=== PATIENT | male | born 1970 | race Two or more races ===

== ENCOUNTER 2019-08-23 07:41 | Emergency (ER) | payer OTHER ==
[2019-08-23 08:16] VITALS: BMI 26.3
[2019-08-23] MEDS ORDERED: KETOROLAC TROMETHAMINE 30 MG/1 ML VIAL IM ONE (08:39)
[2019-08-23] MEDS ORDERED: diazePAM 2 MG TABLET PO ONE ×2 (08:39→13:41)
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
[2019-08-23] MEDS ORDERED: KETOROLAC TROMETHAMINE 30 MG/1 ML VIAL ONE (08:42)
[2019-08-23] MEDS ORDERED: diazePAM 2 MG TABLET ONE (08:42)
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
[2019-08-23] MEDS ORDERED: morphine CARPU-JECT 4 MG/1 ML DISP.SYRIN IVPUSH ONE (09:06)
[2019-08-23] MEDS ORDERED: MORPHINE SULFATE 2 MG/ML VIAL ONE (09:12)
[2019-08-23 09:26] LABS: BASO % 0.3 % (0-2.0); EOS % 0.7 % (0-4.5); HEMATOCRIT 42.4 % (35.4-49); HEMOGLOBIN 14.3 GM/dL (11.7-16.9); LYMPH % 23.1 % (8-40); MCH 29.7 pg (25.7-33.7); MCHC 33.7 g/dl (32.0-35.9); MEAN PLT VOLUME 7.8 fl (7.5-11.1); NEUT % 69.9 % (42.8-82.8); PLATELET COUNT 297 K/MM3 (134-434); RBC 4.82 M/mm3 (4.00-5.60); RDW 14.5 % (11.9-15.9); WHITE BLOOD COUNT 7.1 K/mm3 (4.0-10.0)
[2019-08-23 10:05] LABS: ALBUMIN 3.8 g/dl (3.4-5.0); BILIRUBIN,TOTAL 0.4 mg/dL (0.2-1); BLOOD UREA NITROGEN 16.1 mg/dL (7-18); CALCIUM 9.4 mg/dL (8.5-10.1); POTASSIUM 4.3 mmol/L (3.5-5.1); TOT PROT 7.2 g/dl (6.4-8.2)
[2019-08-23] MEDS ORDERED: METHOCARBAMOL 500 MG TABLET PO ONE (13:38)
[2019-08-23] MEDS ORDERED: ACETAMINOPHEN 1000 MG/100 ML VIAL (NON FORMULARY) IVPB ONE (13:41)
[2019-08-23] MEDS ORDERED: KETOROLAC TROMETHAMINE 30 MG/1 ML VIAL IVPUSH ONE (13:41)
[2019-08-23] MEDS ORDERED: diazePAM 5 MG TABLET ONE (14:02)
[2019-08-23] MEDS ORDERED: KETOROLAC TROMETHAMINE 15 MG/ML VIAL ONE (14:03)
[2019-08-23] MEDS ORDERED: ACETAMINOPHEN INJECTION 100 ML IVPB ONE (14:03)
[2019-08-23 15:57] VITALS: BP 121/71; PULSE 58; TEMP 98.2
== END 2019-08-23 15:58 | disposition home or self-care (01) ==
LOC: JER 07:41
PROC: 3E033NZ Introduction of Analgesics, Hypnotics, Sedatives into Peripheral Vein, Percutaneous Approach (ICD-10-PCS; principal; 2019-08-23)
PROC: 3E033NZ Introduction of Analgesics, Hypnotics, Sedatives into Peripheral Vein, Percutaneous Approach (ICD-10-PCS; 2019-08-23)
PROC: 3E0333Z Introduction of Anti-inflammatory into Peripheral Vein, Percutaneous Approach (ICD-10-PCS; 2019-08-23)
DX: S39.82XA Other specified injuries of lower back, initial encounter (principal); M62.830 Muscle spasm of back; V47.5XXA Car driver injured in collision with fixed or stationary object in traffic accident, initial encounter; Y92.411 Interstate highway as the place of occurrence of the external cause; Y93.89 Activity, other specified; Y99.8 Other external cause status
CPT/HCPCS: 36415; 74177-TC; 80053; 85025; 99282-25; J0131; Q9967